=== PATIENT | male | born 1960 | race Caucasian/White ===

== ENCOUNTER 2021-11-27 22:03 | Emergency (ER) | payer BC ==
[~2021-11-27] VITALS: Ht 175.3 cm; Wt 72.7 kg
[2021-11-27 22:10] VITALS: TEMP 98
[2021-11-27 23:00] LABS: BASO # 0.1 K/mm3 (0.0-0.2); BASO % 0.7 % (0.0-2.0); EOS % 0.2 % (0.0-4.0); GRAN # 9.8 K/mm3 (1.4-6.5); GRAN % 81.8 % (42.2-75.2); HEMATOCRIT 40.5 % (42.0-52.0); LYMPH # 1.3 K/mm3 (1.2-3.4); MEAN CELL VOLUME 88 fl (80.0-100.0); MEAN CORPUSCULAR HEMOGLOBIN 31 pg (27-31); MEAN CORPUSCULAR HGB CONC 35 g/dl (33.0-37.0); MEAN PLATELET VOLUME 10.2 fl (7.4-10.4); MONO # 0.7 K/mm3 (0.1-0.6); MONO % 6.1 % (1.7-9.3); PLATELET COUNT 286 K/mm3 (130-400); RED BLOOD COUNT 4.58 M/mm3 (4.20-5.60); REDCELL DISTRIBUTION WIDTH-CV 12.6 % (11.5-14.5)
[2021-11-27 23:17] LABS: ALBUMIN 4.3 gm/dL (3.4-4.8); BILIRUBIN,TOTAL 0.4 mg/dL (0.2-1.2); CALCIUM 8.9 mg/dL (8.4-10.2); CREATININE, serum 1.47 mg/dL (0.72-1.25); POTASSIUM 3.7 mmol/L (3.5-4.5); TOTAL PROTEIN 7.1 gm/dL (6.2-8.1)
[2021-11-27 23:23] LABS: TROPONIN-I 0.033 ng/mL (0.00-0.033)
[2021-11-28 00:27] VITALS: BP 137/73; PULSE 81
== END 2021-11-28 00:42 | disposition home or self-care (01) ==
LOC: COL.ER 22:03
PROVIDERS: Personal Emergency Response Attendant
DX: N28.9 Disorder of kidney and ureter, unspecified (principal); R55 Syncope and collapse; Z20.822 Contact with and (suspected) exposure to COVID-19
CPT/HCPCS: J7030; Q9967

== ENCOUNTER → 2021-11-28 | Outpatient (CLI) | payer BC | LOC: COL.VAS 10:01 | DX: R55 Syncope and collapse (principal) ==